=== PATIENT | female | born 1975 | race Caucasian/White ===

== ENCOUNTER 2018-06-12 23:23 | Inpatient (IN) ==
[2018-06-13] MEDS ORDERED: ONDANSETRON HCL/PF 2 MG/ML VIAL IV PRN ×2 (00:03→15:52)
[2018-06-13] MEDS ORDERED: OXYTOCIN/DEXTROSE 5%-WATER 30 UNITS/500 ML BAG IV ONE (00:03)
[2018-06-13] MEDS ORDERED: PENICILLIN G POTASSIUM 5 MILLIONUNT in DEXTROSE 5 % IN WATER 100 ML IV ONE ×2 (00:03)
[2018-06-13] MEDS: MISOPROSTOL 100 MCG TABLET VG PRN ×2 (00:42→04:42)
[2018-06-13] MEDS ORDERED: DEXTROSE 5%-LACTATED RINGERS 1,000 ML IV PRN (03:00)
[2018-06-13 03:20] LABS: Cocaine Ur Negative (NEGATIVE); Urine Barbiturate Negative (NEGATIVE); Urine Benzodiazepines Negative (NEGATIVE); Urine Opiates Negative (NEGATIVE); Urine PCP Negative (NEGATIVE); Urine THC Negative (NEGATIVE)
[2018-06-13] MEDS: PENICILLIN G POTASSIUM 2.5 MILLIONUNT in DEXTROSE 5 % IN WATER 100 ML IV SCH ×12 (04:26→23:40)
--- NOTE | 2018-06-13 14:44 | HP ---
Chief Complaint - Chief Complaint Date of Service: 06/13/18 Time of Service: 14:10 Chief Complaint: Medical induction of labor History of Present Illness: 43 yo at 39 wks presents to L&D for medical induction of labor. This complicated by anxiety, anemia, AMA, and insulin dependent gestational diabetes. Rh positive Rubella immune GBS positive Medical History (Last Reviewed 06/13/18 @ 14:14 by Gurinder Rosenbaum DO) Gestational diabetes (Acute) 1998, 2017 ADD (attention deficit disorder) 04/25/15 Advanced maternal age (AMA), 40 years or greater 2018 Body piercing Dysmenorrhea Episodic tension-type headache, not intractable 04/25/15 Frequent headaches GERD (gastroesophageal reflux disease) Gastroesophageal reflux disease with esophagitis Generalized anxiety disorder History of being tatooed Joint pain Menorrhagia 05/03/15 Seasonal allergies Sneezing, itchy eyes Anemia w/ Asthma Last episode approx. 2 years ago. No current inhaler. No hx of hospitalizations. Heart palpitations Occasional episodes. Negative evaluation. Last episode over a year ago. 11/25/17 Surgical History: Surgical History (Last Reviewed 06/13/18 @ 14:15 by Gurinder Rosenbaum DO) History of tonsillectomy at age 18 Family History: Family History (Last Reviewed 06/13/18 @ 14:15 by Gurinder Rosenbaum DO) Aunt Breast cancer Ovarian cancer Father Myocardial infarction Diabetes Kidney stones COPD (chronic obstructive pulmonary disease) Hypertension Thyroid disorder Grandfather Heart disease Grandmother Heart disease Grandmother Heart disease Mother Mental and behavioral problem in adult Social History: Preferred Language Bengali Smoking Status Current some day smoker (Last Updated 06/11/18 @ 18:23 by Gurinder Rosenbaum DO) No Social History Section defined Review Of Systems (GEN) - Review of Systems Generalized/Overall Review: Present: No Symptoms Reported EENTM: Present: No Symptoms Reported Respiratory: Present: No Symptoms Reported Cardiac: Present: No Symptoms Reported Abdominal: Present: No Symptoms Reported Genitourinary: Present: No Symptoms Reported Musculoskeletal: Present: No Symptoms Reported Neurological: Present: No Symptoms Reported Skin: Present: No Symptoms Reported Endocrine: Present: No Symptoms Reported Allergies/Adverse Reactions: Allergies Allergy/AdvReac Type Severity Reaction Status Date / Time No Known Allergies Allergy Verified 06/13/18 01:18 Home Medications: HOME MEDICATIONS acetaminophen 500 mg tablet 1,000 mg PO Q6H PRN tab 11/25/17 [Last Taken Unknown] cetirizine 10 mg tablet 10 mg PO .PRN tab 11/25/17 [Last Taken Unknown] calcium carbonate 200 mg calcium (500 mg) chewable tablet 200 mg PO BID tab 12/23/17 [Last Taken Unknown] vitamin,calcium,bvuxdcjn-nggx-nswcb acid tablet 1 tab PO DAILY #30 tab 12/23/17 [Last Taken Unknown] magnesium 250 mg tablet See Rx Instructions PO DAILY 03/16/18 [Last Taken Unknown] acetone (urine) test strips See Dose Instructions .ROUTE .MEDSUPPLY #100 ea 03/27/18 [Last Taken Unknown] blood sugar diagnostic strips See Dose Instructions .ROUTE .MEDSUPPLY #100 ea 03/27/18 [Last Taken Unknown] blood-glucose meter kit See Dose Instructions .ROUTE .MEDSUPPLY #1 ea 03/27/18 [Last Taken Unknown] lancets See Dose Instructions .ROUTE .MEDSUPPLY #100 ea 03/27/18 [Last Taken Unknown] insulin syringe U-100 with needle 1 mL 25 gauge x 5/8" See Dose Instructions .ROUTE .MEDSUPPLY #100 ea 04/02/18 [Last Taken Unknown] insulin lispro (U- 100) 100 unit/mL subcutaneous cartridge See Rx Instructions SUBCUT .COMPLEX #10 ml 05/28/18 [Last Taken Unknown] insulin NPH isophane U- 100 human 100 unit/mL subcutaneous suspension See Rx Instructions SUBCUT .COMPLEX ml 06/11/18 [Last Taken Unknown] Exam - Exam Vital Signs: Vital Signs - Last Taken Temp 36.9 C 06/13/18 00:15 Pulse 93 06/13/18 00:15 Resp 18 06/13/18 00:15 BP 123/78 06/13/18 00:15 Pulse Ox 98 06/13/18 00:15 Constitutional: Present: Alert, Oriented x3, Cooperative ENT Exam: Present: hearing grossly normal Breasts: Present: Exam deferred Respiratory: Present: lungs clear, no respiratory distress Cardiovascular/Chest: Present: regular rate, rhythm, no edema Abdomen: Present: soft, nontender, other - gravid /Rectal: Present: Other - cervix- 1/50/-2 Extremity: Present: no pedal edema, no calf tenderness Skin Exam: Present: warm/dry Neurologic: Present: alert, normal mood/affect, oriented x 3 Appearance: Present: appropriate appearance, appropriate insight Eye contact: Present: cooperative, good eye contact Thoughts: Present: normal thought pattern Diagnostic Studies: Laboratory Results Urine Opiates Screen Negative (NEGATIVE) 06/13/18 01:50 Barbiturate Screen Negative (NEGATIVE) 06/13/18 01:50 Ur Phencyclidine Scrn Negative (NEGATIVE) 06/13/18 01:50 Urine Amphetamine Negative (NEGATIVE) 06/13/18 01:50 U Benzodiazepines Scrn Negative (NEGATIVE) 06/13/18 01:50 Urine Cocaine Screen Negative (NEGATIVE) 06/13/18 01:50 Urine Marijuana (THC) Negative (NEGATIVE) 06/13/18 01:50 Assessment/Plan - Assessment/Plan (1) Group beta Strep positive Problem: Acute (2) Anemia Problem: Acute Qualifiers: Anemia type: iron deficiency (3) Anxiety Problem: Chronic (4) Advanced maternal age affecting , antepartum Problem: Acute (5) Gestational diabetes Assessment: Admit for cytotec induction of labor. Pitocin and epidural PRN. Insulin drip protocol. IV PCN for GBS prophylaxis. Problem: Acute Qualifiers: Gestational diabetes mellitus control: insulin-controlled Trimester: third trimester Qualified Code(s): O24.414 - Gestational diabetes mellitus in , insulin controlled
--- NOTE | 2018-06-13 14:48 | PN ---
Progess Note - Interim Date: 06/13/18 Time: 12:35 Narrative: 06/13/18 14:44 Patient starting to become uncomfortable with contractions Vital signs stable. Pitocin at 1 mu/min. FHT: 140 baseline, reassuring Contractions q 2-3 min Cervix: 1-2/50/-3, AROM clear fluid at 1225, placental edge palpable on the anterior edge of cervix. Impression: Intrauterine at 39 weeks induction of labor for insulin- dependent gestational diabetes, advanced maternal age. Marginal previa. GBS positive - status post 3 doses of IV penicillin. Plan: Epidural when necessary. Monitor closely for bleeding. Continue blood glucose monitoring.
[2018-06-13] MEDS: RINGER'S SOLUTION,LACTATED 1,000 ML IV ONE ×2 (15:50→16:36)
[2018-06-13] MEDS ORDERED: BUPIVACAINE HCL/0.9 % NACL/PF 250 ML EP PRN (15:52)
[2018-06-13] MEDS ORDERED: NALOXONE HCL 1 MG/1 ML SYRG IV PRN (15:52)
[2018-06-13] MEDS ORDERED: fentaNYL CITRATE/PF 50 MCG/ML AMPUL IT SCH (16:00)
--- NOTE | 2018-06-13 16:38 | ANES ---
Post Anesthesia Assessment - Vital Signs Vitals: Last Vital Signs Temp 36.9 C 06/13/18 00:15 Pulse 93 06/13/18 00:15 Resp 18 06/13/18 00:15 BP 123/78 06/13/18 00:15 Pulse Ox 98 06/13/18 00:15 Airway Patency: Normal - Mental Status Level Of Consciousness: Awake - Pain Level Pain Score: 1 - N/V Assessment Nausea/Vomiting Presence: None Dehydration:: No
--- NOTE | 2018-06-13 16:38 | ANES ---
Anesthesia Pre Procedure Eval Vitals/Labs: Last Vital Signs Temp 36.9 C 06/13/18 00:15 Pulse 93 06/13/18 00:15 Resp 18 06/13/18 00:15 BP 123/78 06/13/18 00:15 Pulse Ox 98 06/13/18 00:15 HOME MEDICATIONS acetaminophen 500 mg tablet 1,000 mg PO Q6H PRN tab 11/25/17 [Last Taken Unknown] cetirizine 10 mg tablet 10 mg PO .PRN tab 11/25/17 [Last Taken Unknown] calcium carbonate 200 mg calcium (500 mg) chewable tablet 200 mg PO BID tab 12/23/17 [Last Taken Unknown] vitamin,calcium,zqkrmaxh-frlt-cxrcy acid tablet 1 tab PO DAILY #30 tab 12/23/17 [Last Taken Unknown] magnesium 250 mg tablet See Rx Instructions PO DAILY 03/16/18 [Last Taken Unknown] acetone (urine) test strips See Dose Instructions .ROUTE .MEDSUPPLY #100 ea 03/27/18 [Last Taken Unknown] blood sugar diagnostic strips See Dose Instructions .ROUTE .MEDSUPPLY #100 ea 03/27/18 [Last Taken Unknown] blood-glucose meter kit See Dose Instructions .ROUTE .MEDSUPPLY #1 ea 03/27/18 [Last Taken Unknown] lancets See Dose Instructions .ROUTE .MEDSUPPLY #100 ea 03/27/18 [Last Taken Unknown] insulin syringe U-100 with needle 1 mL 25 gauge x 5/8" See Dose Instructions .ROUTE .MEDSUPPLY #100 ea 04/02/18 [Last Taken Unknown] insulin lispro (U- 100) 100 unit/mL subcutaneous cartridge See Rx Instructions SUBCUT .COMPLEX #10 ml 05/28/18 [Last Taken Unknown] insulin NPH isophane U- 100 human 100 unit/mL subcutaneous suspension See Rx Instructions SUBCUT .COMPLEX ml 06/11/18 [Last Taken Unknown] Allergies/Adverse Reactions: Allergies Allergy/AdvReac Type Severity Reaction Status Date / Time No Known Allergies Allergy Verified 06/13/18 01:18 - Planned Procedure Planned Procedure: INDUCTION OF LABOR Medical History (Last Reviewed 06/13/18 @ 16:37 by Aman Barrios CRNA) Gestational diabetes (Acute) 1998, 2017 ADD (attention deficit disorder) 04/25/15 Advanced maternal age (AMA), 40 years or greater 2018 Body piercing Dysmenorrhea Episodic tension-type headache, not intractable 04/25/15 Frequent headaches GERD (gastroesophageal reflux disease) Gastroesophageal reflux disease with esophagitis Generalized anxiety disorder History of being tatooed Joint pain Menorrhagia 05/03/15 Seasonal allergies Sneezing, itchy eyes Anemia w/ Asthma Last episode approx. 2 years ago. No current inhaler. No hx of hospitalizations. Heart palpitations Occasional episodes. Negative evaluation. Last episode over a year ago. 11/25/17 Surgical History (Last Reviewed 06/13/18 @ 16:37 by Aman Barrios CRNA) History of tonsillectomy at age 18 Family History (Last Reviewed 06/13/18 @ 16:37 by Aman Barrios CRNA) Aunt Breast cancer Ovarian cancer Father Myocardial infarction Diabetes Kidney stones COPD (chronic obstructive pulmonary disease) Hypertension Thyroid disorder Grandfather Heart disease Grandmother Heart disease Grandmother Heart disease Mother Mental and behavioral problem in adult - Family Anesthesia History Family History:: no untoward family reactions to anesthesia - Airway/Neck/Teeth Within Normal Limits:: Yes Teeth Condition: intact Neck Exam: full range of motion Mallampatti Score: 2 Thyromental (T-M) distance: > 6 cm Mandibulo Hyoid distance: > 3 cm - Respiratory Respiratory Physical: lungs clear Sleep Apnea currently treated: No Sleep Apnea by current assessment: No - Cardiovascular Tolerate Activity: Good Heart Sounds: S1 & S2, Regular - Anesthesia Assessment and Plan ASA Class: PS, II, E Anesthesia Type Plan: Epidural
--- NOTE | 2018-06-13 16:38 | ANES ---
Post Anesthesia Discharge - Transfer of Care Transfer of Care handoff given to nurse: Yes - Anesthesia Post Op Note Anesthesia Post Op Note: Care transferred to OB RN
--- NOTE | 2018-06-13 16:40 | ANES ---
Anesthesia Procedure Note Procedure Note: ANESTHESIA PROCEDURE NOTE Date of Procedure: [] 06/13/2018 Time of procedure:[]. 16 20 Performed by: Hermann Barrios CRNA [employer]: None. Preprocedure diagnosis: Active labor. Post procedure diagnosis: Same. Procedure: Insertion of labor epidural. Indications: The patient is a [43] -year-old [T ] female in active labor requesting labor epidural for pain management. Findings: See below. Details of the procedure: The patient was placed in a sitting position. Back was prepped with DuraPrep. Patient was then draped in a sterile fashion. Lidocaine 1% was infiltrated to the skin and subcutaneous tissues at the level of the L3 4 interspace. The epidural space was identified using a 18-gauge Tuohy needle with oirh-bo-gleevqoqgc technique. 20 mcg fentanyl was given intrathecally using a 27 ga. spinal needle. Epidural catheter was inserted without difficulty. Negative test dose was elicited using 5 mL of 1.5% preservative-free lidocaine plus epinephrine 1 200,000. The epidural catheter was then taped and secured in place. EBL: Minimal. Fluids: N/A. Specimen: N/A. Post procedure condition: The patient tolerated the procedure well. No complications were noted. Thank you for this consultation. [place] CRNA
--- NOTE | 2018-06-13 19:40 | PN ---
Progess Note - Interim Date: 06/13/18 Time: 19:38 Narrative: 06/13/18 19:38 Patient comfortable with epidural Vital signs stable. Pitocin at 6 mu/min. FHT: 140 baseline, reassuring Contractions q 2-3 min Cervix: 3/50/-3 Impression: Intrauterine at 39 weeks induction of labor for ges tational diabetes. Marginal previa-stable. Plan: Continue present plan
[2018-06-13] MEDS ORDERED: INSULIN REGULAR, HUMAN 100 UNITS/ML VIAL ONE (22:07)
[2018-06-13] MEDS: INSULIN REGULAR, HUMAN 100 UNITS in NORMAL SALINE 100 ML IV PRN ×2 (22:33)
[2018-06-14] MEDS: PENICILLIN G POTASSIUM 2.5 MILLIONUNT in DEXTROSE 5 % IN WATER 100 ML IV SCH ×4 (03:31→07:30)
[2018-06-14] MEDS: INSULIN REGULAR, HUMAN 100 UNITS in NORMAL SALINE 100 ML IV PRN ×2 (04:37)
[2018-06-14] MEDS: RINGER'S SOLUTION,LACTATED 1,000 ML IV ONE (06:55)
--- NOTE | 2018-06-14 07:49 | PN ---
Progess Note - Interim Date: 06/14/18 Time: 07:41 Narrative: 06/14/18 07:41 Patient feeling more pressure Vital signs stable. Temp 37.7C, blood sugar 120, Pitocin at 10 mu/min. FHT: 180 baseline, good kymm-mb-xryt variability with accelerations until placed on the abdomen to try to convert baby from OP to OA and then the wyec-oh-sowf variability decreased - returned when placed back in dorsal lithotomy position. Contractions q 3 min Cervix: Stretchy 8/90/-2 Impression: Intrauterine at 39-1/7 weeks induction of labor for insulin-dependent gestational diabetes. Marginal previa. Advanced maternal age. Developing signs of chorioamnionitis. GBS positive due for her next dose of IV penicillin. Plan: Anticipate vaginal delivery within the next 15-30 minutes.
[2018-06-14 08:43] LABS: Hematocrit 32.5 % (37.0-47.0); Hemoglobin 10.8 gm/dL (12.5-16.0); Mean Cell Volume 94.5 fl (78-100); Mean Corpuscular Hemoglobin 31.4 pg (27-31); Mean Corpuscular Hgb Conc 33.2 g/dl (32-36); Mean Platelet Volume 9.5 fl (8-12.5); Neutrophil # 13.9 K/mm3 (1.3-6.0); Neutrophil % 92.6 % (42-75.0); Platelet Count 174 K/mm3 (150-450); Red Blood Count 3.44 M/mm3 (4.2-5.4); Red Cell Distribution Width 13.6 % (11.5-14.0)
[2018-06-14] MEDS ORDERED: MISOPROSTOL 200 MCG TABLET RC STA (08:47)
--- NOTE | 2018-06-14 08:58 | OR ---
Operative Report - Dictated Report Narrative: Spontaneous vaginal delivery of viable vigorously crying female at 0810 on 06/14/2018 with Apgars 9 and 9, weighing 2911 g in JUN position with right hand at chin and loose arm cord 1. Baby with terminal meconium and large amount of stool after delivery. Cord clamping delayed approximately 1 minute Placenta delivered complete, intact, with three vessel cord - sent to pathology Estimated blood loss: 1000 mL (400 mL the a few minutes later another 300 mL and then a few minutes later another 300 mL) Anesthesia: epidural Lacerations: First-degree vaginal laceration repaired with 3-0 Vicryl Rapide With second episode of bleeding, manual exploration of the uterine cavity with ring forceps was performed at bedside to assure no retained products of conception.
[2018-06-14] MEDS ORDERED: oxyCODONE HCL/ACETAMINOPHEN 1 TAB TABLET PO PRN (14:30)
[2018-06-14] MEDS ORDERED: BISACODYL 10 MG SUPP.RECT RC PRN (14:30)
[2018-06-14] MEDS ORDERED: BENZOCAINE/MENTHOL 81 SPRAY CAN TP PRN (14:30)
[2018-06-14] MEDS ORDERED: OXYTOCIN/DEXTROSE 5%-WATER 30 UNITS/500 ML BAG IV ONE (14:30)
[2018-06-14] MEDS ORDERED: SENNOSIDES 8.6 MG TABLET PO PRN (14:30)
[2018-06-14] MEDS ORDERED: GLYCERIN/WITCH HAZEL LEAF 40 APPL BOX TP PRN (14:30)
[2018-06-14] MEDS ORDERED: HYDROCORTISONE 30 APPL TUBE TP PRN (14:30)
[2018-06-14] MEDS: DOCUSATE SODIUM 100 MG CAPSULE PO SCH ×2 (14:38→21:40)
[2018-06-14] MEDS: oxyCODONE HCL/ACETAMINOPHEN 1 TAB TABLET PO PRN ×2 (14:53→21:40)
[2018-06-14] MEDS: IBUPROFEN 800 MG TABLET PO PRN ×2 (14:54→21:40)
[2018-06-14] MEDS ORDERED: ALPRAZolam 0.5 MG TABLET PO ONE (15:07)
[2018-06-14] MEDS ORDERED: FERROUS SULFATE 325 MG TABLET PO SCH (17:00)
[2018-06-14] MEDS ORDERED: CALCIUM CARBONATE 500 MG TAB.CHEW PO SCH (21:00)
[2018-06-15] MEDS: PENICILLIN G POTASSIUM 2.5 MILLIONUNT in DEXTROSE 5 % IN WATER 100 ML IV SCH ×2 (01:44)
[2018-06-15] MEDS: IBUPROFEN 800 MG TABLET PO PRN ×4 (03:43→23:34)
[2018-06-15] MEDS: oxyCODONE HCL/ACETAMINOPHEN 1 TAB TABLET PO PRN ×4 (03:44→23:34)
--- NOTE | 2018-06-15 08:35 | PN ---
Subjective - Date and Time Seen Date: 06/15/18 Time: 08:29 Objective - Vitals Vitals: Last Vital Signs Temp 36.6 C 06/15/18 01:28 Pulse 79 06/15/18 01:28 Resp 16 06/15/18 01:28 BP 97/53 06/15/18 01:28 Pulse Ox 99 06/15/18 01:28 Patient was lightheaded and dizzy getting up after delivery. Symptoms resolved after giving 1 unit of packed red blood cells. Prior to transfusion patient also developed episode of chest pain which she thought was her anxiety. An EKG done to assure no cardiac issues came back normal. Fasting blood sugar 124 Lochia wnl Abdomen - soft, nontender Uterus - firm, at umbilicus - 1 No calf tenderness Impression: day #1 - s/p spontaneous vaginal delivery. Anemia/symptomatic from hemorrhage-resolved after 1 unit of packed red blood cells. Insulin-dependent gestational diabetes-blood sugars still elevated Plan: Continue routine care. Continue to observe for excess vaginal bleeding. Repeat blood sugars in a.m. - Abnormal Lab Findings Abnormal Lab Findings: Abnormal Lab Results 06/14/18 06/14/18 Range/Units 08:35 08:35 WBC 15.0 H (4.0-10.5) K/mm3 RBC 3.44 L (4.2-5.4) M/mm3 Hgb 10.8 L (12.5-16.0) gm/dL Hct 32.5 L (37.0-47.0) % MCH 31.4 H (27-31) pg Immature Gran % (Auto) 0.90 H (0.001-0.429) % Immature Gran # (Auto) 0.13 H (0.000-0.0310) K/mm3 Neutrophils % 92.6 H (42-75.0) % Lymphocytes % 3.1 L (20-51) % Neutrophils # 13.9 H (1.3-6.0) K/mm3 Lymphocytes # 0.47 L (1.5-3.5) k/mm3 Crossmatch See Detail Cauti Physician Documentation - Urinary Catheter Management Urethral (Velez) Date of Insertion: 06/14/18 Time of Insertion: 10:00 Date of Removal: 06/14/18 Time of Removal: 21:00 Assessment/Plan - Problems/Diagnosis (1) Group beta Strep positive Problem: Acute (2) Anemia Problem: Acute Qualifiers: Anemia type: iron deficiency (3) Anxiety Problem: Chronic (4) Advanced maternal age affecting , antepartum Problem: Acute (5) Gestational diabetes Problem: Acute Qualifiers: Gestational diabetes mellitus control: insulin-controlled Trimester: third trimester Qualified Code(s): O24.414 - Gestational diabetes mellitus in , insulin controlled
[2018-06-15] MEDS: DOCUSATE SODIUM 100 MG CAPSULE PO SCH ×2 (08:37→20:47)
[2018-06-15] MEDS ORDERED: MAGNESIUM PO SCH (09:00)
[2018-06-15] MEDS ORDERED: PRENATAL VITS96/IRON FUM/FOLIC 1 TAB TABLET PO SCH (09:00)
--- NOTE | 2018-06-15 10:00 | PN ---
Subjective - Date and Time Seen Date: 06/15/18 Time: 09:59 Objective - Vitals Vitals: Last Vital Signs Temp 36.6 C 06/15/18 01:28 Pulse 79 06/15/18 01:28 Resp 16 06/15/18 01:28 BP 97/53 06/15/18 01:28 Pulse Ox 99 06/15/18 01:28 - Abnormal Lab Findings Abnormal Lab Findings: Abnormal Lab Results 06/14/18 Range/Units 08:35 Crossmatch See Detail Cauti Physician Documentation - Urinary Catheter Management Urethral (Velez) Date of Insertion: 06/14/18 Time of Insertion: 10:00 Date of Removal: 06/14/18 Time of Removal: 21:00
--- NOTE | 2018-06-15 14:51 | PN ---
Progess Note - Interim Date: 06/15/18 Time: 14:50 History for MU Definition: * The number of deliveries resulting in a live the patient experienced prior to current hospitalization * The previous delivery of live twins or any live multiple gestation is considered one live event. *If primagravida or nulliparous is documented select zero for the number of previous live births. Live Events: 2
[2018-06-16] MEDS: IBUPROFEN 800 MG TABLET PO PRN (07:26)
[2018-06-16 07:48] VITALS: BP 119/65
--- NOTE | 2018-06-16 08:39 | PN ---
Subjective - Date and Time Seen Date: 06/16/18 Time: 08:36 Objective - Vitals Vitals: Last Vital Signs Temp 36.8 C 06/16/18 07:15 Pulse 85 06/16/18 07:15 Resp 18 06/16/18 07:15 BP 119/65 06/16/18 07:15 Pulse Ox 97 06/16/18 07:15 Patient denies complaints. Breast-feeding Fasting blood sugar 99 Lochia wnl Abdomen - soft, nontender Uterus - firm, at umbilicus - 2 No calf tenderness Impression: day #2 - s/p spontaneous vaginal delivery. hemorrhage due to uterine atony-resolved. Gestational diabetes - improving. Anxiety/depression. Plan: Routine discharge instructions. Continue diabetic diet and check blood sugars the day before visit. hemorrhage precautions. Resume anxiety/depression medication. Cauti Physician Documentation - Urinary Catheter Management Urethral (Velez) Date of Insertion: 06/14/18 Time of Insertion: 10:00 Date of Removal: 06/14/18 Time of Removal: 21:00 Assessment/Plan - Problems/Diagnosis (1) Group beta Strep positive Problem: Acute (2) Anemia Problem: Acute Qualifiers: Anemia type: iron deficiency (3) Anxiety Problem: Chronic (4) Advanced maternal age affecting , antepartum Problem: Acute (5) Gestational diabetes Problem: Acute Qualifiers: Gestational diabetes mellitus control: insulin-controlled Trimester: third trimester Qualified Code(s): O24.414 - Gestational diabetes mellitus in , insulin controlled
[2018-06-16] MEDS: DOCUSATE SODIUM 100 MG CAPSULE PO SCH (10:18)
== END 2018-06-16 15:05 | disposition home or self-care (01) | DRG 805 ==
LOC: OB 23:23
PROVIDERS: ADMIT Obstetrics & Gynecology; ATTEND Obstetrics & Gynecology
CPT/HCPCS: 36415; 59025; 80307; 85025; 86850; 86900; 88307; 93005; P9016